=== PATIENT | female | born 1995 | race Caucasian/White ===

== ENCOUNTER 2022-03-09 14:18 | Outpatient (CLI) | payer SELFPAY ==
[2022-03-09] MEDS ORDERED: PRENATAL TABLET PO (14:37)
[2022-03-09] MEDS ORDERED: CLARITIN 1010 MG/TAB (14:37)
[2022-03-09 14:54] VITALS: BP 117/66; PULSE 79
[2022-03-09 15:11] LABS: AMORPHOUS CRYSTAL Present (NOT PRESENT); MUCOUS Present (NOT PRESENT); PH 8 (5-8); SQUAMOUS EPITHELIAL 20-50 /hpf (0-10); URINE APPEARANCE Cloudy (CLEAR/HAZY); URINE BACTERIA Rare /hpf (NONE SEEN); URINE BILIRUBIN Negative (NEGATIVE); URINE BLOOD Negative (NEGATIVE); URINE COLOR Yellow (YELLOW); URINE GLUCOSE Negative (NEGATIVE); URINE KETONE Negative (NEGATIVE); URINE LEUKOCYTE ESTERASE Trace (NEGATIVE); URINE NITRATE Negative (NEGATIVE); URINE PROTEIN(semi-quant) Negative (NEGATIVE); URINE RBC 0-2 /hpf (0-2); URINE UROBILINOGEN Negative (NEGATIVE)
[2022-03-09 15:45] LABS: COLLECTION METHOD CLEAN CATCH
== END 2022-03-09 15:30 | disposition home or self-care (01) ==
LOC: LDRO 14:18 → LDR 14:51 → LDRO 15:30
PROVIDERS: Obstetrics & Gynecology
DX: O26.892 Other specified pregnancy related conditions, second trimester (principal); R10.32 Left lower quadrant pain; Z3A.22 22 weeks gestation of pregnancy

== ENCOUNTER 2022-07-01 08:19 | Inpatient (IN) | payer OTHER ==
[~2022-07-01] VITALS: Ht 160 cm; Wt 85.0 kg
[~2022-07-01 08:19] MED LIST: CLARITIN 1010 MG/TAB; PRENATAL TABLET PO
[2022-07-02] VITALS (17 sets, daily range): BP systolic 82–125; BP diastolic 47–93; PULSE 60–79; TEMP 97.4–98.2
--- NOTE | 2022-07-02 05:45 | NUR ---
0545 TO 213 FOR SCHEDULED C/SECT. EFM ON AND VS DONE.
[2022-07-02] MEDS ORDERED: PROFERRIN ES12 MG PO (06:18)
[2022-07-02 07:08] LABS: BASO % 0.3 % (0.0-2.0); EOS # 0.1 K/mm3 (0.0-0.7); EOS % 1.1 % (0.0-4.0); GRAN # 8.9 K/mm3 (1.4-6.5); GRAN % 74.4 % (42.2-75.2); HEMOGLOBIN 10.6 g/dl (12.5-16.0); LYMPH # 2.1 K/mm3 (1.2-3.4); LYMPH % 17.8 % (20.0-51.0); MEAN CELL VOLUME 85 fl (80.0-100.0); MEAN CORPUSCULAR HEMOGLOBIN 28 pg (27-31); MEAN CORPUSCULAR HGB CONC 33 g/dl (33.0-37.0); MEAN PLATELET VOLUME 10.9 fl (7.4-10.4); MONO # 0.6 K/mm3 (0.1-0.6); MONO % 5.3 % (1.7-9.3); PLATELET COUNT 195 K/mm3 (130-400); RED BLOOD COUNT 3.77 M/mm3 (4.10-5.30); REDCELL DISTRIBUTION WIDTH-CV 15.8 % (11.5-14.5)
[2022-07-03 03:00] VITALS: BP 102/74; PULSE 65; TEMP 97.9
[2022-07-03 07:34] VITALS: BP 102/64; PULSE 65; TEMP 97.8
[2022-07-03] MEDS ORDERED: IBU800 M1 PO (09:48)
[2022-07-03] MEDS ORDERED: PERCOCET 325 MG1 TA2 PO (09:48)
--- NOTE | 2022-07-03 09:52 | NUR ---
Initial visit; Patient thanked [employer] for offering congratulations and God's blessings for the of her daughter. [employer]ender thanked patient for choosing [facility].
--- NOTE | 2022-07-03 14:22 | NUR ---
BREAST PUMP AND KIT PROVIDED TO PT AND USE REVIEWED. THIS NURSE OFFERS TO ASSIST PT WITH FIRST TIME, PT ASKS TO JUST CALL IF SHE HAS QUESTIONS.
[2022-07-03 16:22] VITALS: BP 110/73; PULSE 63; TEMP 98
[2022-07-03 21:30] VITALS: BP 104/79; PULSE 65; TEMP 98.1
[2022-07-04 08:35] VITALS: BP 106/65; PULSE 58; TEMP 97.8
== END 2022-07-04 13:05 | disposition home or self-care (01) | DRG 788 ==
LOC: OB 07-02 05:33
PROVIDERS: ADMIT Student in an Organized Health Care Education/Training Program
PROC: 10D00Z1 Extraction of Products of Conception, Low, Open Approach (ICD-10-PCS; principal; 2022-07-02)
DX: O99.02 Anemia complicating childbirth (principal); D64.9 Anemia, unspecified; O69.81X0 Labor and delivery complicated by cord around neck, without compression, not applicable or unspecified; K21.9 Gastro-esophageal reflux disease without esophagitis; O99.62 Diseases of the digestive system complicating childbirth; Z3A.39 39 weeks gestation of pregnancy; Z37.0 Single live birth; Z88.6 Allergy status to analgesic agent; Z67.21 Type B blood, Rh negative
CPT/HCPCS: J0690; J1100; J1885; J2405; J2590; J7120